=== PATIENT | male | born 1975 | race Caucasian/White ===

== ENCOUNTER 2016-07-27 10:48 | Emergency (ER) | payer OTHER ==
[~2016-07-27] VITALS: Ht 188 cm; Wt 74.8 kg
--- NOTE | ~2016-07-27 | EKG ---
[address] [employer] [place] [address] ELECTROCARDIOGRAM REPORT Name: JEFF TAPIA Room #: DEP Shasta#: [id number] Admission: 07/27/16 Attend Phys: Discharge: 07/27/16 Date of : 71 Report #: [id number] THIS REPORT FOR: //name// [facility] ED Test Date: 2016-07-27 Test Time: 11:04:47 Pat Name: JEFF TAPIA Department: Room: Gender: Event Management Consultant: maura feldman : 1975 Requested By: Monica Tracey Order Number: [id number] MD: Alberto Richey Measurements Intervals Paden Rate: 89 P: 75 MS: 135 QRS: 52 QRSD: 95 T: 48 QT: 365 QTc: 445 Interpretive Statements Sinus rhythm No significant abnormality No previous ECG available for comparison Electronically Signed On 07-29-2016 10:58:04 CDT by Alberto Richey [email or web address] <ELECTRONICALLY SIGNED> By: Alberto Richey MD, [facility] 07/29/16 1058 1104 1104 Alberto Richey MD, FACC /EPI
[2016-07-27 11:17] LABS: HEMATOCRIT 43.6 % (42.0-52.0); HEMOGLOBIN 15.1 gm/dL (14.0-18.0); MCH 33.7 pg (26.0-34.0); MCHC 34.6 g/dL (28.0-37.0); MCV 97.4 fL (80.0-100.0); PLATELET COUNT 277 thou/uL (150-400); RBC 4.47 mil/uL (4.50-6.00); WBC 17.1 thou/uL (4.0-11.0)
[2016-07-27 11:21] LABS: MANUAL DIFF YES
[2016-07-27 11:28] LABS: ANION GAP 11 mmol/L (7-16); BUN 9 mg/dL (7-18); CALCIUM 9.4 mg/dL (8.5-10.1); CHLORIDE 104 mmol/L (98-107); CO2 25 mmol/L (21-32); CREATININE 1.3 mg/dL (0.7-1.3); GLUCOSE 153 mg/dL (74-106); SODIUM 140 mmol/L (136-145)
[2016-07-27 11:37] LABS: TROPONIN-I < 0.04 ng/mL (<0.04-0.07)
[2016-07-27] MEDS ORDERED: NORCO 5-325 TA1 EACH PO (11:56)
[2016-07-27] MEDS ORDERED: PREDNISONE 10 M10 MG PO (11:56)
[2016-07-27 12:06] LABS: ABSOLUTE NEUTROPHILS 15.7 thou/uL (1.4-8.2); METAMYELOCYTES 1 %; TOTAL CELL COUNT 100
[2016-07-27 12:20] VITALS: BP 130/80
== END 2016-07-27 12:20 | disposition home or self-care (01) ==
LOC: ER 10:48
PROVIDERS: Emergency Medicine
DX: L25.9 Unspecified contact dermatitis, unspecified cause (principal); R06.00 Dyspnea, unspecified; M25.531 Pain in right wrist; J45.909 Unspecified asthma, uncomplicated; Z86.19 Personal history of other infectious and parasitic diseases; Z98.890 Other specified postprocedural states